=== PATIENT | male | born 1985 ===

== ENCOUNTER 2020-09-07 01:56 | Emergency (ER) | payer SELFPAY ==
[~2020-09-07] VITALS: Ht 177.8 cm; Wt 86.2 kg
--- NOTE | 2020-09-07 02:00 | NUR ---
Pt BIB [facility], found by an accident scene shooting up heroine. No SOB or labored breathing, Afebrile. Noted to just be mumbling. Awake and oriented x2.
--- NOTE | 2020-09-07 02:01 | NUR ---
Dr. Amaral at bedside, MSE in progress.
[2020-09-07] MEDS ORDERED: NALOXONE HCL 0.4 MG/ML AMPUL IM ONE (02:15)
[2020-09-07] MEDS ORDERED: NALOXONE HCL 0.4 MG/ML AMPUL ONE (02:17)
--- NOTE | 2020-09-07 02:26 | NUR ---
Pt bveing taken down for CT.
--- NOTE | 2020-09-07 02:50 | NUR ---
Pt returned from CT.
[2020-09-07 03:01] LABS: *BILIRUBIN,URIN 1+ (NEGATIVE); *BLOOD, URINE NEGATIVE (NEGATIVE); *CLARITY,URINE CLEAR (CLEAR); *COLOR,URINE AMBER (YELLOW); *KETONES,URINE TRACE (NEGATIVE); *UROBILINOGEN,URINE 0.2 E.U./dl (NORMAL); LEUKOCYTE ESTERASE ,URINE NEGATIVE (NEGATIVE); NITRITE, URINE NEGATIVE (NEGATIVE); PH,URINE 5.5 (5.0-8.0); UGLUCOSE NEGATIVE (NEGATIVE)
[2020-09-07 03:04] LABS: BACTERIA,URINE NONE SEEN /HPF (NONE SEEN); RBC,URINE 0-3 /HPF (0-3); SQUAMOUS EPITHELIAL CELL,UR NONE SEEN /HPF (NONE SEEN); WBC,URINE 0-3 /HPF (0-3)
[2020-09-07 03:09] LABS: HEMATOCRIT 41.6 % (36.7-47.1); MEAN CORPUSCULAR HEMOGLOBIN 29.1 uug (23.8-33.4); PLATELET COUNT (AUTO) 195 K/uL (152-348)
[2020-09-07 03:23] LABS: *AMPHETAMINE, URINE POSITIVE (NEGATIVE); *CANNABINOID, URINE NEGATIVE (NEGATIVE); *COCCAINE, URINE NEGATIVE (NEGATIVE); *OPIATE, URINE NEGATIVE (NEGATIVE); *PHENCYCLIDINE SCREEN,URINE NEGATIVE (NEGATIVE)
[2020-09-07 03:23] LABS: ALANINE AMINOTRANSFERASE 48 U/L (16-63); ALKALINE PHOSPHATASE 80 U/L (50-136); ASPARTATE AMINOTRANSFERASE 83 U/L (15-37); BILIRUBIN,DIRECT 0.2 mg/dL (0.0-0.2); BILIRUBIN,TOTAL 0.8 mg/dL (0.2-1.0); CARBON DIOXIDE 26 mmol/L (21-32); CHLORIDE 105 mmol/L (98-107); CREATININE 0.9 mg/dL (0.6-1.3); GLUCOSE 98 mg/dL (74-106); POTASSIUM 3.5 mmol/L (3.5-5.1); TOTAL PROTEIN, SERUM 7.2 g/dL (6.4-8.2); UREA NITROGEN, BLOOD 19 mg/dL (7-18)
[2020-09-07 03:26] LABS: ACETAMINOPHEN < 2.0 ug/mL (10-30); ETHANOL < 3 MG/DL (0-0)
[2020-09-07] MEDS ORDERED: HALOPERIDOL LACTATE 5 MG/1 ML VIAL ONE (03:41)
[2020-09-07] MEDS ORDERED: LORAZEPAM 2 MG/1 ML VIAL ONE (03:42)
[2020-09-07] MEDS ORDERED: LORAZEPAM 2 MG/1 ML VIAL IM ONE (03:45)
[2020-09-07] MEDS ORDERED: HALOPERIDOL LACTATE 5 MG/1 ML VIAL IM ONE (03:45)
--- NOTE | 2020-09-07 04:51 | NUR ---
Patient is resting comfortably in bed with eyes closed.
--- NOTE | 2020-09-07 07:30 | NUR ---
Pt sleeping in bed, no distress noted.
--- NOTE | 2020-09-07 09:44 | NUR ---
Patient continues to resting bed without any signs of acute distress, director of social services will be contacted once patient awakens
--- NOTE | 2020-09-07 11:34 | NUR ---
Pt sleeping in bed, no distress noted.
--- NOTE | 2020-09-07 11:42 | NUR ---
environmental services coordinator noted at bedside, patient continues to rest despite verbal stimuli, social worker aide unable to speak with patient at this time and states she will return at a later time
--- NOTE | 2020-09-07 11:44 | NUR ---
Pt responds to painful stimuli but is not yet alert enough to carry on a conversation.
--- NOTE | 2020-09-07 11:50 | NUR ---
Convenience Store Clerk Consultation: Convenience Store Clerk consultation requested for substance abuse. Patient was brought into the ED by paramedics due to overdose. Patient is a 35 year old male. This SOFTWARE DEVELOPMENT SPECIALIST attempted to interview the patient, but patient was not arousable. JIMMY Odonnell and JIMMY Perez attempted to wake patient up, but patient only opened his eyes for a couple of seconds and went back to sleep. Patient was not able to remain awake. This SOFTWARE DEVELOPMENT SPECIALIST to attempt to meet with patient at a later time.
--- NOTE | 2020-09-07 14:00 | NUR ---
I took over care for this patient at this time.
--- NOTE | 2020-09-07 14:38 | NUR ---
Mrp Controller Note: This CROWN IRONER followed up with patient. Patient was still asleep, but RN Chris assisted this CROWN IRONER with trying to wake the patient up. Patient woke up, but needed constant cueing throughout this interview to remain awake. Patient is a 35 year old male who was brought in by paramedics due to drug overdose. Per toxicology report, patient tested positive for amphetamines. Patient was able to provide this CROWN IRONER with his first name, but could not recall his last name. Patient was aware that he is in the hospital for overdose; patient denies SI. Patient was able to provide his . Patient stated he is homeless, and plans on returning back to this living arrangement. Patient stated he uses heroin and speed. Patient was not able to provide any additional information, as patient was continuously falling back asleep, and this CROWN IRONER and RN needed to constantly call his name in order for patient to wake up again. Patient was offered homeless community resources, and patient was receptive to these. Patient was offered both a breakfast tray earlier today, and a lunch tray. Patient ate both meals. Discharge plans are for patient to return to his previous living arrangement with homeless community resources. Dr. Knox was informed of above.
--- NOTE | 2020-09-07 14:56 | NUR ---
Patient was provided with the following resources: SW provided the homeless resource packet to the patient, which includes the following information: a list of year round shelters [facility] [place] [address], ; [facility] [place] [address] [facility], ; and [facility] [place] [address] [facility], ; [facility], ; [facility], [address] [place] [address], [address], ; [facility], [address] [facility], [address], . [facility], [facility], [address] [facility], [address], [facility], [address] [place] [address], [facility], [facility], [address] [place] [address], [facility], [facility], [address] [place] [address], (women only) [facility], [address] [facility], [address], (men only) [facility], [address] [place] [address], (women only) [facility] [place] homeless directory which provides a list of places that individuals can go to throughout the week for hot meals, sack lunches, food pantries, and showers; a list of mental health clinics: [facility] [address] [place] [address], ; [facility] [place] [address] [place] [address], ; [facility] [address] [place] [address], ; a list of medical clinics: [facility] [address] [facility] [address], [place]. [place], ; [facility] [address] [facility], [facility] [address] [address]; [facility] [address] [facility] [place] [address], ; and a list of substance abuse programs: [facility] Substance Abuse Self-helpline ; [facility] ; [facility] ; [facility] ; [facility] ; [facility] [phone]; [facility] [phone]. SW also provided patient with information on locations of pharmacies. Patient signed the homeless patient waiver form. This BALANCE STAFF STAKER filed the form in the patient's ED chart.
--- NOTE | 2020-09-07 15:03 | NUR ---
Patient discharged in stable condition. Written and verbal after care instructions given. Patient verbalizes understanding of instructions. Stressed follow up or return to ER for worsening s/s. Steady gait. Cleared by drug abuse social worker and medically cleared by ER MD. All belongings with patient. Food and resources provided. Able to swallow and ambulate with no issues.
[2020-09-07 15:08] VITALS: BP 122/80
== END 2020-09-07 14:55 | disposition home or self-care (01) ==
LOC: ER 01:56
DX: F15.129 Other stimulant abuse with intoxication, unspecified (principal); F11.10 Opioid abuse, uncomplicated; Z59.0 Homelessness; R00.0 Tachycardia, unspecified; Z20.822 Contact with and (suspected) exposure to COVID-19
CPT/HCPCS: 36415; 70450; 71045; 80048; 80076; 80299; 80307; 80320; 81001; 82140; 84443; 84484; 85025; 87426; 93005; 96372 ×2; 99285; J1630; J2060; J2310; 70030-TC; A4663; G0480